=== PATIENT | female | born 1955 | race Caucasian/White ===

== ENCOUNTER 2021-04-05 12:53 | Emergency (ER) | payer OTHER, SELFPAY ==
[2021-04-05 13:04] VITALS: BP 195/97; PULSE 79; RESP 15; TEMP 36.8; O2SAT 96; BMI 16.6
--- NOTE | 2021-04-05 13:17 | XRR_ITS ---
PROCEDURE INFORMATION: Exam: XR Right Knee Exam date and time: 04/05/2021 1:17 PM Age: 65 years old Clinical indication: Injury or trauma; Fall; Blunt trauma; Knee; Right; Additional info: Fall, swelling, pain TECHNIQUE: Imaging protocol: XR Right knee. Views: 3 views. COMPARISON: No relevant prior studies available. FINDINGS: Bones/joints: There is a large hyperdense the knee joint effusion concerning for hemarthrosis. 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 There is abundant soft tissue edema superficial to the patella and anterior tibial tuberosity. There is a very subtle lucent line extending to the articular surface of the tibia along the lateral tibial intercondylar spine concerning for new nondisplaced fracture. No acute fracture is identified in the femur, fibula or patella. Soft tissues: See Bones/joints finding. Other findings: No cross-table lateral film is provided. XR/XR knee RT 3V* [id number] IMPRESSION: 1. There is a large hyperdense the knee joint effusion concerning for hemarthrosis. 2. There is a very subtle lucent line extending to the articular surface of the tibia along the lateral tibial intercondylar spine concerning for new nondisplaced fracture. 3. There is concern for subtle nondisplaced fracture of the intercondylar spines of the tibia.
--- NOTE | 2021-04-05 13:28 | ED_ITS ---
HPI - Fall General: Chief Complaint: Fall Stated Complaint: FALL: R KNEE INJURY Time Seen by Provider: 04/05/21 13:11 History of Present Illness: HPI Narrative: Patient fell on Tuesday scraping her right leg and sustained injury to her right knee. Unable to bear weight has swelling to the right knee. MD complaint: fall Onset (ago): day(s) Fall from: standing Fall witnessed: yes, by family Place fall occurred: other (Outdoor) Loss of consciousness: None Symptoms prior to fall: none Context: tripped/slipped Location of injury - extremities: Right: knee Severity: moderate Severity scale (1-10): 3 Quality: aching Associated symptoms-after fall: Reports difficulty walking; Denies abdominal pain or chest pain Review of Systems Const: Denies: fever(s), chills or body aches Eyes: Denies: change in vision or blurry vision ENMT: Denies: throat pain or nasal congestion Card: Denies: chest pain or dyspnea on exertion Resp: Denies: dyspnea, productive cough or non-productive cough GI: Denies: abdominal pain, nausea or vomiting Musc: Reports: joint pain (Right knee) and joint swelling; Denies: extremity pain Skin/Breast: Denies: rash Neuro: Reports: difficulty walking Psych: Denies: anxiety or depression Gibran/Lymph: Denies: easy bruising Physical Exam Const: COMMON NORMALS: no acute distress GENERAL APPEARANCE: cooperative Resp: COMMON NORMALS: normal respiratory effort Extremity: RIGHT LOWER EXTREMITY: Yes knee joint (Swollen tender decreased range of motion. Pain with palpation medial aspec) Course Vital Signs: Vital signs: Vital Signs Temperature 98.3 F 04/05/21 13:04 Pulse Rate 79 04/05/21 15:22 Respiratory Rate 14 04/05/21 15:22 Blood Pressure 195/97 04/05/21 15:22 Pulse Oximetry 96 04/05/21 15:22 MDM - Fall MDM Narrative: Medical decision making narrative: Discussed radiology results with Dr. Mccurdy. I called patient left a voicemail for her to make sure that she definitely puts no weightbearing on that knee and that she follow-up with orthopedic doctor at the first of this week. Discharge Plan Discharge Patient Disposition: Home Clinical Impression: Right knee injury Qualifiers: Encounter type: initial encounter Qualified Code(s): S89.91XA - Unspecified injury of right lower leg, initial encounter Condition: Stable Prescriptions: New Celebrex 100 mg capsule 100 mg PO BID Qty: 20 RF: 0 Discharge Orders: Discharge ED (Routine); Ordered 04/05/21 Ordered By: Yuan Engle Discharge Diet: Usual diet Discharge Activity: Limit activity as instructed and Use walker/crutches as instructed Patient Instructions: Crutch Instructions (ED), Knee Immobilizer (ED) Activity Restrictions/Additional Instructions: Follow-up with medical provider as directed. Take medications as prescribed. Return to the ER or your medical provider if condition worsens. Please read and understand discharge instructions. If any questions ask please. Follow-up your primary care provider at home and see about get in touch with orthopedic doctor for follow-up for possible ligament damage evaluation. Nonweightbearing in the meantime. Off work for next couple weeks. Stand Alone Forms: Work/School Release Coding Level of Care Code ED Change Control Analyst for Phillip Fwd Exam Expanded Problem Focused
[2021-04-05 13:46] VITALS: BP 195/97; PULSE 79; RESP 14; O2SAT 96
[2021-04-05 15:22] VITALS: BP 195/97; PULSE 79; RESP 14; O2SAT 96
[2021-04-05] MEDS: CELEcoxib 200 mg Capsule 400 MG PO (15:22)
== END 2021-04-05 15:23 | disposition home or self-care (01) ==
PROVIDERS: Emergency Provider Nurse Practitioner Family
DX: S89.91XA Unspecified injury of right lower leg, initial encounter (principal); W19.XXXA Unspecified fall, initial encounter
CPT/HCPCS: 28530; 73562; 99283; E0114